=== PATIENT | male | born 1995 | race African-American/Black ===

== ENCOUNTER 2018-01-29 19:03 | Emergency (ER) | payer OTHER ==
[2018-01-29 19:27] LABS: GLUCOSE, URINE (UA) NEGATIVE (NEGATIVE); KETONES,URINE (UA) TRACE mg/dL (NEGATIVE); LEUKOCYTE ESTERASE, URINE NEGATIVE (NEGATIVE); NITRITE,URINE NEGATIVE (NEGATIVE); OCCULT BLOOD,URINE NEGATIVE (NEGATIVE); PROTEIN,URINE TRACE mg/dL (NEGATIVE); UROBILINOGEN,URINE 0.2 (NORMAL) E.U./dL (NORMAL)
[2018-01-29 19:30] LABS: BILIRUBIN,URINE NEGATIVE (NEGATIVE); CLARITY,URINE CLEAR (CLEAR); ICTOTEST,URINE NEGATIVE
[2018-01-29] MEDS ORDERED: SODIUM CHLORIDE 0.9% 1,000 ML IV STA (20:36)
[2018-01-29] MEDS ORDERED: ONDANSETRON 4 MG/2 ML VIAL IVP STA (20:36)
[2018-01-29 20:51] LABS: BASOPHILS % (AUTO) 0.3 %; EOSINOPHILS # (AUTO) 0.2 10^3/uL (0.0-0.7); EOSINOPHILS % (AUTO) 2.2 %; HGB - HEMOGLOBIN 16.1 g/dL (14.0-18.0); LYMPHOCYTES # (AUTO) 1.6 10^3/uL (1.5-3.5); LYMPHOCYTES % (AUTO) 22.9 %; MEAN CORPUSCULAR HEMOGLOBIN 30.1 pg (27.0-31.0); MEAN CORPUSCULAR HGB CONC 33.6 g/dL (32.0-36.0); MEAN CORPUSCULAR VOLUME 89.3 fL (80.0-94.0); MEAN PLATELET VOLUME 6.9 fL (7.4-11.4); MONOCYTES # (AUTO) 0.6 10^3/uL (0.0-1.0); MONOCYTES % (AUTO) 8.7 %; NEUTROPHILS # (AUTO) 4.7 10^3/uL (1.5-6.6); NEUTROPHILS % (AUTO) 65.9 %; PLT - PLATELET COUNT 229 10^3/uL (130-450); RED BLOOD COUNT 5.35 10^6/uL (4.70-6.10); RED CELL DISTRIBUTION WIDTH 12.7 % (12.0-15.0); WHITE BLOOD COUNT 7.1 x10^3/uL (4.8-10.8)
--- NOTE | 2018-01-29 20:55 | ED Physician Documentation ---
PD HPI NVD - Stated complaint Stated Complaint: BK PX/ABD PX/DIARRHEA - Chief complaint Chief Complaint: Abd Pain - History obtained from History obtained from: Patient - History of Present Illness Timing - onset: How many days ago (3) Timing - duration: Days Timing - details: Gradual onset, Waxing and waning Associated symptoms: Fever (subjective (did not take temperature at home, but "felt like I had a fever" (per patient) yesterday and has been having chills/ diaphoresis x 2-3 days)). No: Abdominal pain, Chest pain, Dysuria, Hematuria Improved by: Other (no ameliorating factors) Worsened by: Other (back pain is exacerbated with movement) Similar symptoms before: Other (right back pain is chronic x years, but N/V/D started 3 days ago) Recently seen: Not recently seen - Additonal information Additional information: chief complaint is nausea and vomiting, diarrhea x 3 days. He is tolerating PO but small amounts because PO intake rapidly exacerbates nausea; he has a few episodes of emesis as well as few episodes diarrheal stool. He also has exacerbation of chronic right-sided lower back pain; he has been taking 600mg ibuprofen 1-3 times per day, every day since June. Review of Systems Constitutional: reports: Fever (subjective (see above)), Chills, Sweats Cardiac: reports: Reviewed and negative Respiratory: reports: Reviewed and negative GI: reports: Nausea, Vomiting. denies: Abdominal Pain, Diarrhea, Hematemesis, Bloody / black stool : denies: Dysuria, Frequency, Hematuria Musculoskeletal: reports: Back pain PD PAST MEDICAL HISTORY - Past Medical History Past Medical History: No - Past Surgical History Past Surgical History: No - Present Medications Home Medications: Ambulatory Orders Medication Instructions Recorded Confirmed Hydrocodone/Acetaminophen 1 - 2 each PO Q6HR PRN #14 tablet 01/29/18 [Hydrocodon-Acetaminophen 5-325] Ibuprofen [Ibu] 600 mg PO 01/29/18 Omeprazole [PriLOSEC] 20 mg PO DAILY #14 capsule 01/29/18 Ondansetron Odt [Zofran] 4 mg TL Q6H PRN #14 tablet 01/29/18 - Allergies Allergies/Adverse Reactions: Allergies Allergy/AdvReac Type Severity Reaction Status Date / Time No Known Drug Allergies Allergy Verified 01/29/18 19:10 - Social History Does the pt smoke?: No Smoking Status: Never smoker Does the pt drink ETOH?: Yes Does the pt have substance abuse?: No - Immunizations Immunizations are current?: Yes PD ED PE NORMAL - Vitals Vital signs reviewed: Yes - General General: Alert and oriented X 3, No acute distress, Well developed/nourished - HEENT HEENT: Moist mucous membranes - Cardiac Cardiac: RRR, No murmur - Respiratory Respiratory: No respiratory distress, Clear bilaterally - Abdomen Abdomen: Soft, Non distended, Other (mid tenderness to palpation RUQ and epigastrium without rebound or guarding) - Back Back: No CVA TTP, No spinal TTP Results - Vitals Vitals: Vital Signs - 24 hr 01/29/18 01/29/18 19:06 22:03 Temperature 36.7 C 36.6 C Heart Rate 88 74 Respiratory 18 12 Rate Blood Pressure 146/65 H 114/50 L O2 Saturation 98 100 Oxygen O2 Source Room air - Labs Labs: Laboratory Tests 01/29/18 01/29/18 01/29/18 19:12 20:43 20:43 WBC 7.1 RBC 5.35 Hgb 16.1 Hct 47.8 MCV 89.3 MCH 30.1 MCHC 33.6 RDW 12.7 Plt Count 229 MPV 6.9 L Neut # (Auto) 4.7 Lymph # (Auto) 1.6 [place] # (Auto) 0.6 Eos # (Auto) 0.2 Baso # (Auto) 0.0 Absolute Nucleated RBC 0.00 Nucleated RBC % 0.0 Sodium 138 Potassium 3.6 Chloride 103 Carbon Dioxide 26 Anion Gap 9.0 BUN 13 Creatinine 1.1 Estimated GFR (MDRD) 102 Glucose 88 Calcium 8.9 Total Bilirubin 0.6 AST 24 ALT 30 Alkaline Phosphatase 83 Total Protein 7.6 Albumin 4.1 Globulin 3.5 Albumin/Globulin Ratio 1.2 Lipase 28 Urine Color YELLOW Urine Clarity CLEAR Urine pH 6.0 Ur Specific [place] >=1.030 H Urine Protein TRACE Urine Glucose (UA) NEGATIVE Urine Ketones TRACE Urine Occult Blood NEGATIVE Urine Nitrite NEGATIVE Urine Bilirubin NEGATIVE Urine Urobilinogen 0.2 (NORMAL) Ur Leukocyte Esterase NEGATIVE Ur Microscopic Review NOT INDICATED PD MEDICAL DECISION MAKING - ED course Complexity details: reviewed results, re-evaluated patient, considered differential, d/w patient ED course: well-appearing patient on presentation and on reevaluation; blood tests and UA are unremarkable (concentrated urine with spec. grav. >1.030). Given IV fluids ( 1 liter NS) and zofran, and he reported improvement in nausea on reevaluation. Gastritis/PUD remains on differential diagnosis, and I advised him to stop taking the ibuprofen until he discusses this with his PMD, as the regular use of NSAID could be causing/contributing to gastritis, although this is not diagnosable in ED. He says he has been tried on different medications over the past few years for his chronic back pain, but does not recall having been prescribed any narcotic/opiate medication in the past. Given dose of vicodin in ED as well as rx for same, as well as dose of protonix and rx for prilosec. - Sepsis Event Vital Signs: Vital Signs - 24 hr 01/29/18 01/29/18 19:06 22:03 Temperature 36.7 C 36.6 C Heart Rate 88 74 Respiratory 18 12 Rate Blood Pressure 146/65 H 114/50 L O2 Saturation 98 100 Oxygen O2 Source Room air Departure - Departure Disposition: 01 Home, Self Care Clinical Impression: Abdominal pain Qualifiers: Abdominal location: upper abdomen, unspecified Qualified Code(s): R10.10 - Upper abdominal pain, unspecified Vomiting Qualifiers: Vomiting type: unspecified Vomiting Intractability: non-intractable Nausea presence: with nausea Qualified Code(s): R11.2 - Nausea with vomiting, unspecified Back pain Qualifiers: Back pain location: low back pain Chronicity: chronic Back pain laterality: right Sciatica presence: without sciatica Qualified Code(s): M54.5 - Low back pain Condition: Good Instructions: ED Abdominal Pain Unkn Cause, ED Diet Vomiting Diarrhea Prescriptions: Hydrocodone/Acetaminophen [Hydrocodon-Acetaminophen 5-325] 1 - 2 each PO Q6HR PRN #14 tablet PRN Reason: Pain Omeprazole [PriLOSEC] 20 mg PO DAILY #14 capsule Ondansetron Odt [Zofran] 4 mg TL Q6H PRN #14 tablet PRN Reason: Nausea / Vomiting Comments: Follow up with your primary care provider; call in the morning to arrange for next available appointment. I recommend you stop taking ibuprofen until you are advised otherwise by your doctor. Discharge Date/Time: 01/29/18 22:28
[2018-01-29 21:07] LABS: ALBUMIN 4.1 g/dL (3.2-5.5); ALBUMIN/GLOBULIN RATIO 1.2 (1.0-2.2); BILIRUBIN,TOTAL 0.6 mg/dL (0.2-1.0); CALCIUM 8.9 mg/dL (8.5-10.3); CREATININE 1.1 mg/dL (0.6-1.2); TOTAL PROTEIN 7.6 g/dL (6.7-8.2)
[2018-01-29 22:03] VITALS: BP 114/50
[2018-01-29] MEDS ORDERED: PANTOPRAZOLE 40 MG TABLET PO STA (22:19)
[2018-01-29] MEDS ORDERED: HYDROcod/ACETAM 5/325 MG TABLET PO STA (22:20)
[2018-01-29] MEDS ORDERED: ONDANSETRON ODT 4 MG Prepack 2 TL STA (22:20)
== END 2018-01-29 22:28 | disposition home or self-care (01) ==
LOC: ED 19:03
DX: R10.11 Right upper quadrant pain (principal); R10.13 Epigastric pain; M54.5 Low back pain
CPT/HCPCS: 36415; 80053; 81003; 83690; 85025; 96360; 99283; A9270; 81001

== ENCOUNTER 2018-02-26 17:15 | Outpatient (CLI) | payer OTHER ==
--- NOTE | 2018-02-27 10:54 | Ultrasound Report ---
Procedure Date: 02/26/2018 Accession Number: [id number] / [id number] Procedure: US - Abdomen Limited CPT Code: FULL RESULT: EXAM: Abdomen Limited DATE: 02/26/2018 6:14 PM CLINICAL HISTORY: RUQ PAIN COMPARISON: None. TECHNIQUE: Real-time scanning was performed with static images obtained. FINDINGS: The liver measures 14 cm. Hepatic echogenicity is normal. There is an incidental 9 x 8 x 7 mm hemangioma in the right lobe. No suspicious liver lesion is seen. The common bile duct measures 2 mm. The gallbladder is unremarkable, without evidence of cholelithiasis. The right kidney measures 9 cm, and demonstrates no hydronephrosis. No free fluid. IMPRESSION: Incidental hepatic hemangioma. Otherwise, normal right upper quadrant ultrasound. [facility]IA
== END 2018-02-26 23:59 | disposition home or self-care (01) ==
LOC: DI 17:15
PROVIDERS: ATTEND Internal Medicine
DX: R10.11 Right upper quadrant pain (principal)
CPT/HCPCS: 76705

== ENCOUNTER 2018-04-25 18:52 | Emergency (ER) | payer OTHER ==
[2018-04-25 19:16] LABS: BASOPHILS # (AUTO) 0.1 10^3/uL (0.0-0.1); BASOPHILS % (AUTO) 0.6 %; EOSINOPHILS # (AUTO) 0.2 10^3/uL (0.0-0.7); EOSINOPHILS % (AUTO) 2.4 %; HGB - HEMOGLOBIN 15.2 g/dL (14.0-18.0); LYMPHOCYTES # (AUTO) 2.5 10^3/uL (1.5-3.5); LYMPHOCYTES % (AUTO) 30.3 %; MEAN CORPUSCULAR HEMOGLOBIN 29.8 pg (27.0-31.0); MEAN CORPUSCULAR HGB CONC 33.9 g/dL (32.0-36.0); MEAN CORPUSCULAR VOLUME 87.7 fL (80.0-94.0); MEAN PLATELET VOLUME 6.7 fL (7.4-11.4); MONOCYTES # (AUTO) 0.7 10^3/uL (0.0-1.0); MONOCYTES % (AUTO) 8.1 %; NEUTROPHILS # (AUTO) 4.8 10^3/uL (1.5-6.6); NEUTROPHILS % (AUTO) 58.6 %; PLT - PLATELET COUNT 259 10^3/uL (130-450); RED CELL DISTRIBUTION WIDTH 13.7 % (12.0-15.0); WHITE BLOOD COUNT 8.2 x10^3/uL (4.8-10.8)
[2018-04-25 19:28] LABS: ALBUMIN 4.8 g/dL (3.2-5.5); ALBUMIN/GLOBULIN RATIO 1.5 (1.0-2.2); BILIRUBIN,TOTAL 0.7 mg/dL (0.2-1.0); CALCIUM 9.4 mg/dL (8.5-10.3)
--- NOTE | 2018-04-25 19:35 | ED Physician Documentation ---
PD HPI ABD PAIN - Stated complaint Stated Complaint: RT ABD PX - Chief complaint Chief Complaint: Abd Pain - History obtained from History obtained from: Patient - History of Present Illness Timing - onset: How many weeks ago (several) Timing - duration: Weeks Timing - details: Gradual onset Pain level max: 5 Pain level now: 0 Quality: Aching, Sharp, Pain Location: Other (Right side of the abdomen) Radiation: Other (non-radiating.) Improved by: Laying still Worsened by: Other ("engaging my core" at the gym and "doing leg presses") Associated symptoms: No: Fever, Nausea, Vomiting, Hematemesis, Diarrhea, Constipation, Melena, Hematochezia, Dysuria, Hematuria, Near syncope / syncope, Loss of appetite, Testicular pain Similar symptoms before: Has not had sx before Review of Systems Ten Systems: 10 systems reviewed and negative Constitutional: denies: Fever, Chills Ears: denies: Ear pain Nose: denies: Rhinorrhea / runny nose, Congestion Respiratory: denies: Cough GI: denies: Vomiting, Hematemesis, Bloody / black stool : denies: Dysuria Skin: denies: Rash Musculoskeletal: denies: Neck pain, Back pain Neurologic: denies: Focal weakness, Numbness, Headache PD PAST MEDICAL HISTORY - Past Medical History Past Medical History: Yes Cardiovascular: None Respiratory: None Neuro: Other Endocrine/Autoimmune: None GI: None : None HEENT: None Psych: None Musculoskeletal: None Derm: None Other Past Medical History: "Might have neurologic condition, is getting worked [facility]" - Past Surgical History Past Surgical History: No - Present Medications Home Medications: Ambulatory Orders Medication Instructions Recorded Confirmed Omeprazole [PriLOSEC] 20 mg PO DAILY #14 capsule 01/29/18 Ondansetron Odt [Zofran] 4 mg TL Q6H PRN #14 tablet 01/29/18 - Allergies Allergies/Adverse Reactions: Allergies Allergy/AdvReac Type Severity Reaction Status Date / Time No Known Drug Allergies Allergy Verified 04/25/18 19:00 - Social History Does the pt smoke?: No Smoking Status: Never smoker Does the pt drink ETOH?: Yes Does the pt have substance abuse?: No - Immunizations Immunizations are current?: Yes - POLST Patient has POLST: No PD ED PE NORMAL - Vitals Vital signs reviewed: Yes - General General: Alert and oriented X 3, No acute distress - HEENT HEENT: Moist mucous membranes - Neck Neck: Supple, no meningeal sign - Cardiac Cardiac: RRR, Strong equal pulses - Respiratory Respiratory: No respiratory distress, Clear bilaterally - Abdomen Abdomen: Soft, Non distended, Other (Tender to palpation approximately 2 cm to the right of the umbilicus. There is a small palpable hernia which is reducible. Worse with standing. No peritoneal signs) - Derm Derm: Warm and dry - Neuro Neuro: Alert and oriented X 3 - Psych Psych: Normal mood, Normal affect Results - Vitals Vitals: Vital Signs - 24 hr 04/25/18 04/25/18 18:56 19:52 Temperature 36.9 C Heart Rate 65 56 L Respiratory 16 16 Rate Blood Pressure 145/100 H 121/57 L O2 Saturation 95 100 Oxygen O2 Source Room air - Labs Labs: Laboratory Tests 04/25/18 04/25/18 19:10 19:10 WBC 8.2 RBC 5.10 Hgb 15.2 Hct 44.7 MCV 87.7 MCH 29.8 MCHC 33.9 RDW 13.7 Plt Count 259 MPV 6.7 L Neut # (Auto) 4.8 Lymph # (Auto) 2.5 [place] # (Auto) 0.7 Eos # (Auto) 0.2 Baso # (Auto) 0.1 Absolute Nucleated RBC 0.00 Nucleated RBC % 0.0 Sodium 136 Potassium 3.5 Chloride 103 Carbon Dioxide 26 Anion Gap 7.0 BUN 16 Creatinine 1.0 Estimated GFR (MDRD) 114 Glucose 103 H Calcium 9.4 Total Bilirubin 0.7 AST 20 ALT 24 Alkaline Phosphatase 87 Total Protein 8.0 Albumin 4.8 Globulin 3.2 Albumin/Globulin Ratio 1.5 Lipase 40 PD MEDICAL DECISION MAKING - ED course Complexity details: considered differential, d/w patient ED course: Patient is a 22-year-old male with a right-sided ventral hernia. This easily reducible. We will have him follow-up with his doctor for further care. No acute laboratory abnormalities. No evidence of appendicitis or cholecystitis. No peritoneal signs. Patient counseled regarding signs and symptoms for which I believe and urgent re-evaluation would be necessary. Patient with good understanding of and agreement to plan and is comfortable going home at this time This document was made in part using voice recognition software. While efforts are made to proofread this document, sound alike and grammatical errors may occur. - Sepsis Event Vital Signs: Vital Signs - 24 hr 04/25/18 04/25/18 18:56 19:52 Temperature 36.9 C Heart Rate 65 56 L Respiratory 16 16 Rate Blood Pressure 145/100 H 121/57 L O2 Saturation 95 100 Oxygen O2 Source Room air Departure - Departure Disposition: 01 Home, Self Care Clinical Impression: Ventral hernia Qualifiers: Obstruction and gangrene presence: without obstruction or gangrene Qualified Code(s): K43.9 - Ventral hernia without obstruction or gangrene Condition: Good Instructions: Hernia Follow-Up: your,doctor as needed [Other] Comments: It appears that you have a small ventral hernia tonight. This is on the right side of your bellybutton. Your laboratory tests are normal. Return if you worsen. Follow-up with your doctor for further care Discharge Date/Time: 04/25/18 19:53
[2018-04-25 19:54] VITALS: BP 121/57
== END 2018-04-25 19:53 | disposition home or self-care (01) ==
LOC: ED 18:52
DX: K43.9 Ventral hernia without obstruction or gangrene (principal)
CPT/HCPCS: 36415; 80053; 83690; 85025; 99282; 99283

== ENCOUNTER 2020-06-25 21:04 | Outpatient (CLI) | payer OTHER | END 2020-06-25 21:05 | disposition home or self-care (01) | LOC: COV 21:04 | PROVIDERS: ATTEND Family Medicine | DX: R05 Cough (principal); R06.02 Shortness of breath; M79.10 Myalgia, unspecified site; R53.83 Other fatigue; R68.83 Chills (without fever); J02.9 Acute pharyngitis, unspecified; R09.81 Nasal congestion; R11.2 Nausea with vomiting, unspecified; Z20.828 Contact with and (suspected) exposure to other viral communicable diseases ==